=== PATIENT | female | born 1970 | race Caucasian/White ===

== ENCOUNTER 2021-06-16 06:08 | Day surgery (SDC) | payer BC ==
[2021-06-16] MEDS ORDERED: Lactated Ringers 1,000 ML IV SCH (06:30)
[2021-06-16] MEDS ORDERED: Propofol 200 MG/20 ML SDV ONE (06:56)
[2021-06-16] MEDS ORDERED: fentaNYL 100 MCG/2 ML SDV ONE (06:56)
[2021-06-16] MEDS ORDERED: Midazolam 1 MG/ML 2 ML SDV ONE (06:56)
[2021-06-16] MEDS ORDERED: Ketorolac 30 MG/ML SDV ONE (06:57)
[2021-06-16] MEDS ORDERED: Glycopyrrolate 0.2 MG/ML SDV ONE (06:57)
[2021-06-16] MEDS ORDERED: Lidocaine 2% 5 ML SDV ONE (06:57)
[2021-06-16] MEDS ORDERED: Ondansetron 4 MG/2 ML SDV ONE (06:57)
--- NOTE | 2021-06-16 07:37 | PCM.PREANE ---
Preanesthetic Assessment - Procedure Proposed Procedure: Endometrial abl, Dx Hysteroscopy, D&C - Anesthesia/Transfusion/Family Hx Anesthesia History: Prior Anesthesia Without Reaction Family History of Anesthesia Reaction: No Transfusion History: No Prior Transfusion(s) - Review of Systems General: No Symptoms Pulmonary: No Symptoms Cardiovascular: No Symptoms Gastrointestinal: No Symptoms Neurological: No Symptoms (H/O [place] SZ 2011, was on meds but no longer) Other: Reports: None, Thyroid Problems (Hypothyroid) - Physical Assessment NPO Status Date: 06/15/21 NPO Status Time: 18:30 Height: 5 ft 8.5 in Weight: 59.874 kg ASA Class: 2 Mental Status: Alert & Oriented x3 Airway Class: Mallampati = 2 Dentition: Reports: Normal Dentition Thyro-Mental Finger Breadths: 3 Mouth Opening Finger Breadths: 3 ROM/Head Extension: Full Lungs: Clear to Auscultation, Normal Respiratory Effort Cardiovascular: Regular Rate, Regular Rhythm - Lab Values: Laboratory Last Values WBC 4.99 K/uL (4.0-11.0) 06/16/21 06:45 RBC 4.03 M/uL (4.30-5.90) L 06/16/21 06:45 Hgb 12.7 g/dL (12.0-16.0) 06/16/21 06:45 Hct 39.2 % (36.0-46.0) 06/16/21 06:45 MCV 97.3 fL (80.0-98.0) 06/16/21 06:45 MCH 31.5 pg (27.0-32.0) 06/16/21 06:45 MCHC 32.4 g/dL (31.0-37.0) 06/16/21 06:45 RDW Std Deviation 50.9 fl (28.0-62.0) 06/16/21 06:45 RDW Coeff of Pietro 14 % (11.0-15.0) 06/16/21 06:45 Plt Count 308 K/uL (150-400) 06/16/21 06:45 MPV 10.30 fL (7.40-12.00) 06/16/21 06:45 Nucleated RBC % 0.0 /100WBC 06/16/21 06:45 Nucleated RBCs # 0 K/uL 06/16/21 06:45 HCG, Qual NEGATIVE (NEG) 06/16/21 06:45 SARS-CoV-2 RNA (IVON) NEGATIVE (NEGATIVE) 06/16/21 05:57 - Allergies Allergies/Adverse Reactions: Allergies Allergy/AdvReac Type Severity Reaction Status Date / Time omeprazole [From Prilosec] Allergy hospitalize Verified 06/10/21 09:23 d - Acknowledgements Anesthesia Type Planned: General Anesthesia Pt an Appropriate Candidate for the Planned Anesthesia: Yes Alternatives and Risks of Anesthesia Discussed w Pt/Guardian: Yes Pt/Guardian Understands and Agrees with Anesthesia Plan: Yes PreAnesthesia Questionnaire HEENT History: Reports: None Cardiovascular History: Reports: None Respiratory History: Reports: None Gastrointestinal History: Reports: Chronic Constipation Genitourinary History: Reports: None DEAF/HARD OF HEARING SPECIALIST History: Reports: Musculoskeletal History: Reports: None Neurological History: Reports: Concussion, Seizure Other Neuro History: states last seizure was 9 years ago, currently on no medication for this Psychiatric History: Reports: Depression Endocrine/Metabolic History: Reports: Hypothyroidism Hematologic History: Reports: None Immunologic History: Reports: None Oncologic (Cancer) History: Reports: None Dermatologic History: Reports: None - Past Surgical History Head Surgeries/Procedures: Reports: None HEENT Surgical History: Reports: None Cardiovascular Surgical History: Reports: None Respiratory Surgical History: Reports: None GI Surgical History: Reports: Colonoscopy Female Surgical History: Reports: Tubal Ligation Endocrine Surgical History: Reports: None Neurological Surgical History: Reports: None Musculoskeletal Surgical History: Reports: None Oncologic Surgical History: Reports: None Dermatological Surgical History: Reports: None - SUBSTANCE USE Tobacco Use Status *Q: Never Tobacco User - HOME MEDS Home Medications: Home Meds Magnesium Glycinate [Mag Glycinate] 1 - 4 tab PO ASDIRECTED PRN 06/10/21 [History] Thyroid [[place] Thyroid] 30 mg PO DAILY 06/10/21 [History] - CURRENT (IN HOUSE) MEDS Current Meds: Current Medications Lactated Ringer's (Ringers, Lactated) 1,000 mls @ 125 mls/hr IV ASDIRECTED YURI Discontinued Medications Fentanyl (Fentanyl 100 Mcg/2 Ml Sdv) Confirm Administered Dose 100 mcg .ROUTE .STK-MED ONE Stop: 06/16/21 06:57 Glycopyrrolate (Glycopyrrolate 0.2 Mg/Ml Sdv) Confirm Administered Dose 0.2 mg .ROUTE .STK-MED ONE Stop: 06/16/21 06:58 Ketorolac Tromethamine (Ketorolac 30 Mg/Ml Sdv) Confirm Administered Dose 30 mg .ROUTE .STK-MED ONE Stop: 06/16/21 06:58 Lidocaine (Lidocaine 2% 5 Ml Sdv) Confirm Administered Dose 5 ml .ROUTE .STK-MED ONE Stop: 06/16/21 06:58 Midazolam HCl (Midazolam 1 Mg/Ml 2 Ml Sdv) Confirm Administered Dose 2 mg .ROUTE .STK-MED ONE Stop: 06/16/21 06:57 Ondansetron HCl (Ondansetron 4 Mg/2 Ml Sdv) Confirm Administered Dose 4 mg .ROUTE .STK-MED ONE Stop: 06/16/21 06:58 Propofol (Propofol 200 Mg/20 Ml Sdv) Confirm Administered Dose 200 mg .ROUTE .STK-MED ONE Stop: 06/16/21 06:57
[2021-06-16] MEDS ORDERED: Naloxone 0.4 MG/ML SDV IVPUSH PRN (07:53)
[2021-06-16] MEDS ORDERED: Albuterol 0.083% 2.5 MG/3 ML Neb Soln NEB PRN (07:53)
[2021-06-16] MEDS ORDERED: fentaNYL 100 MCG/2 ML SDV IVPUSH PRN (07:53)
[2021-06-16] MEDS ORDERED: Ondansetron 4 MG/2 ML SDV IVPUSH PRN (07:53)
[2021-06-16] MEDS ORDERED: Morphine 2 MG/ML SYRINGE IVPUSH PRN (07:53)
[2021-06-16] MEDS ORDERED: HYDROmorphone 1 MG/ML Syringe IVPUSH PRN (07:53)
[2021-06-16] MEDS ORDERED: Metoclopramide 10 MG/2 ML SDV IVPUSH PRN (07:53)
--- NOTE | 2021-06-16 08:51 | PCM.POSTAN ---
POST ANESTHESIA ASSESSMENT - MENTAL STATUS Mental Status: Somnolent - VITAL SIGNS Vital Signs: Last Vital Signs Temp 97.5 F 06/16/21 07:10 Pulse 71 06/16/21 07:10 Resp 16 06/16/21 07:10 BP 92/52 L 06/16/21 07:10 Pulse Ox 100 06/16/21 07:10 - RESPIRATORY Respiratory Status: Respiratory Rate WNL, Airway Patent, O2 Saturation Stable - CARDIOVASCULAR CV Status: Pulse Rate WNL, Blood Pressure Stable - GASTROINTESTINAL GI Status: No Symptoms - PAIN Free Text/Narrative:: Resting comfortably - POST OP HYDRATION Hydration Status: Adequate & Stable
[2021-06-16] MEDS ORDERED: Acetaminophen/HYDROcodone 325-5 MG Tab PO PRN (09:00)
[2021-06-16] MEDS ORDERED: Ketorolac 30 MG/ML SDV IVPUSH ONE (09:00)
--- NOTE | 2021-06-16 09:06 | PCM.OPNOTE ---
- General Post-Op/Procedure Note Date of Surgery/Procedure: 06/16/21 Operative Procedure(s): Hysteroscopy Dilatation and curettage. Endometrial ablation with donna Findings: EUA showed 10 week sized anteverted fibroid uterus Normal appearing endometrium Bilateral ostia visualized Fluid deficit is 155 of NS Pre Op Diagnosis: Abnormal uterine bleeding - Fibroid Post-Op Diagnosis: same Anesthesia Technique: General ET Tube Primary Surgeon: Buzz Snyder Anesthesia Provider: Colten Delacruz Pathology: Endometrial curettings Fluid Replacement, Intraop: 500 EBL in mLs: 10 Complications: None Condition: Good
--- NOTE | 2021-06-16 09:15 | PCM48HPAN ---
Post Anesthesia Note - EVALUATION WITHIN 48HRS OF ANESTHETIC Vital Signs in Normal Range: Yes Patient Participated in Evaluation: Yes Respiratory Function Stable: Yes Airway Patent: Yes Cardiovascular Function Stable: Yes Hydration Status Stable: Yes Pain Control Satisfactory: Yes Nausea and Vomiting Control Satisfactory: Yes Mental Status Recovered: Yes Vital Signs: Last Vital Signs Temp 97.0 F 06/16/21 08:47 Pulse 74 06/16/21 09:07 Resp 11 L 06/16/21 09:07 BP 95/55 L 06/16/21 09:07 Pulse Ox 100 06/16/21 09:07 - COMMENTS/OBSERVATIONS Free Text/Narrative:: Pt doing well post-op. VSS. No apparent anesthetic complications. Dr. Benton Jimenez
--- NOTE | 2021-06-17 13:13 | OR ---
SURGEON: GLENROY MODI DATE OF PROCEDURE: 06/16/2021 PREOPERATIVE DIAGNOSES: A 50-year-old para 1 with abnormal uterine bleeding secondary to uterine fibroids. POSTOPERATIVE DIAGNOSES: A 50-year-old para 1 with abnormal uterine bleeding secondary to uterine fibroids. PROCEDURE: Hysteroscopy, Dilatation and curettage, and endometrial ablation via Donna. OPERATIVE FINDING: About a 10-week size anteverted fibroid uterus. The hysteroscopy showed normal endometrium. No abnormal structure or polyps noted. Normal tubal ostia bilaterally. EBL: Minimal. COMPLICATION: None. IV FLUID: 500. URINE OUTPUT: Minimal. FLUID DEFICIT: 155. ANESTHESIA: General. NOTES AND FINDING Normal Uterine cavity , normal ostia noted. EUA showed normal sized anteverted uterus BRIEF HISTORY ABOUT THE PATIENT: Ms. Danna Michael is para 1, previous x1, history of bilateral tubal ligation with Filshie clips. The patient presented with abnormal uterine bleeding. She had ultrasound done that showed uterine fibroids. She had a [place] ultrasound done that showed no submucosal fibroids or polyps. Endometrial biopsy was done which was normal. Conservatively therapy was used to manage the patient previously and did not work for her. The patient desired endometrial ablation. She was explained the risks, potential complications, and benefits, and she decided to proceed, and consent was signed. PROCEDURE IN DETAIL: Under general anesthesia, the patient was put in a dorsal lithotomy position. The patient was prepared and draped in the usual sterile manner. A bimanual exam was done with the above-noted finding noted. The bivalve speculum was placed in the vagina and was used to expose the cervix. The Uterus was sounded to 9.5cm, the cervix was measured measured 3cm . Depth for ablation noted to be 6.5cm. The cervix was dilated to accommodate the hysteroscopy. the above noted findings was noted. Sharp curettage was done with the size 3 endometrial curette. The Donna was then set to the uterine depth and inserted into the uterine cavity, the outer balloon donna device was inflated. The integrity check was done and and integrity of uterine cavity was confirmed. The Device was activated. Ablation was done for a total of 120 seconds. The devices was removed from the cavity. Hysteroscope was reinserted , and the ablated endometrium was noted. Hysteroscope and allis clamp was removed. Patient tolerated the procedure well and was taken to the recovery room in stable condition. SOCORRO BROWN /[id number] MTDD
== END 2021-06-16 10:19 | disposition home or self-care (01) ==
LOC: MW.SDS 06:08
PROVIDERS: ATTEND Obstetrics & Gynecology
DX: D25.9 Leiomyoma of uterus, unspecified (principal); Z79.899 Other long term (current) drug therapy; Z98.890 Other specified postprocedural states; Z88.8 Allergy status to other drugs, medicaments and biological substances; Z01.812 Encounter for preprocedural laboratory examination; Z20.822 Contact with and (suspected) exposure to COVID-19
CPT/HCPCS: 36415; 58563; 84703; 85027; 87635; J2250; J2370; J2704; J3490; J7120; 00952; J1885; J2405; J3010; U0002